=== PATIENT | female | born 1995 | race Caucasian/White ===

== ENCOUNTER 2017-05-03 12:35 | Outpatient (CLI) | payer BC ==
[~2017-05-03] VITALS: Ht 165.1 cm; Wt 93.2 kg
[~2017-05-03 12:35] MED LIST: ALBU18HF INH; PREN1TAB60 PO
[2017-05-03 13:03] VITALS: BP 122/78
[2017-05-03] MEDS ORDERED: NITR100C56 PO (14:16)
[2017-05-03 14:38] LABS: DAU SCREEN DISCLAIMER
== END 2017-05-03 14:35 | disposition home or self-care (01) ==
LOC: LDOP 12:35
PROVIDERS: ATTEND Student in an Organized Health Care Education/Training Program
DX: O26.893 Other specified pregnancy related conditions, third trimester (principal); O99.513 Diseases of the respiratory system complicating pregnancy, third trimester; O99.343 Other mental disorders complicating pregnancy, third trimester; R10.9 Unspecified abdominal pain; J45.909 Unspecified asthma, uncomplicated; F32.9 Major depressive disorder, single episode, unspecified; Z3A.38 38 weeks gestation of pregnancy
CPT/HCPCS: 59025; 80307; 81001; 87086; 99211; G0463

== ENCOUNTER 2017-05-09 15:39 | Outpatient (CLI) | payer BC ==
[~2017-05-09] VITALS: Ht 165.1 cm; Wt 92.7 kg
[~2017-05-09 15:39] MED LIST changes: +NITR100C56 PO
[2017-05-09 16:05] VITALS: BP 103/70
== END 2017-05-09 17:38 | disposition home or self-care (01) ==
LOC: LDOP 15:39
PROVIDERS: ATTEND Student in an Organized Health Care Education/Training Program
DX: O26.893 Other specified pregnancy related conditions, third trimester (principal); O99.513 Diseases of the respiratory system complicating pregnancy, third trimester; O99.343 Other mental disorders complicating pregnancy, third trimester; J45.909 Unspecified asthma, uncomplicated; R10.9 Unspecified abdominal pain; F32.9 Major depressive disorder, single episode, unspecified; Z3A.39 39 weeks gestation of pregnancy
CPT/HCPCS: 59025; 99211; G0463

== ENCOUNTER 2017-05-10 03:45 | Outpatient (CLI) | payer BC ==
[2017-05-10] MEDS ORDERED: ZOLPIDEM 10MG TABLET ONE (05:15)
[2017-05-10] MEDS ORDERED: ZOLPIDEM 10MG TABLET PO PRN (05:30)
== END 2017-05-10 05:45 | disposition home or self-care (01) ==
LOC: LDOP 03:45
PROVIDERS: ATTEND Student in an Organized Health Care Education/Training Program
DX: O26.893 Other specified pregnancy related conditions, third trimester (principal); O99.513 Diseases of the respiratory system complicating pregnancy, third trimester; O99.343 Other mental disorders complicating pregnancy, third trimester; J45.909 Unspecified asthma, uncomplicated; R10.9 Unspecified abdominal pain; F32.9 Major depressive disorder, single episode, unspecified; Z3A.37 37 weeks gestation of pregnancy
CPT/HCPCS: 59025; 99211; G0463

== ENCOUNTER 2017-05-11 12:04 | Inpatient (IN) | payer BC ==
[~2017-05-11] VITALS: Ht 165.1 cm; Wt 92.7 kg
[2017-05-11 12:07] VITALS: BP 101/67
[2017-05-11] MEDS ORDERED: OXYTOCIN 30U/ 0.9% NaCL 500ML 500 ML IV ONE (14:20)
[2017-05-11] MEDS ORDERED: OXYTOCIN 30U/ 0.9% NaCL 500ML 500 ML IV PRN (14:20)
[2017-05-11] MEDS ORDERED: FENTANYL PF 100 MCG/2ML IVPush PRN (14:30)
[2017-05-11] MEDS ORDERED: TERBUTALINE 1 MG/ML, 1ML SQ PRN (14:30)
[2017-05-11] MEDS ORDERED: ONDANSETRON 2MG/ML, 2ML IVPush PRN (14:30)
[2017-05-11] MEDS ORDERED: FENTANYL PF 100 MCG/2ML IV PRN (14:30)
[2017-05-11] MEDS: LACTATED RINGERS 1,000 ML IV SCH ×3 (14:52→18:23)
[2017-05-11 15:14] LABS: HEMATOCRIT 43.1 % (34.6-47.8); HEMOGLOBIN 14.4 g/dL (11.7-16.4); WHITE BLOOD COUNT 12.8 x10^3/uL (3.4-10)
[2017-05-11] MEDS ORDERED: NEWBORN KIT ONE (16:02)
[2017-05-11] MEDS ORDERED: OXYTOCIN 30U/ 0.9% NaCL 500ML 500 ML ONE ×2 (16:02→16:46)
[2017-05-11] MEDS ORDERED: MISOPROSTOL 200 MCG TABLET ONE (16:02)
[2017-05-11] MEDS ORDERED: LIDOCAINE 1%, 20ML ONE (16:02)
[2017-05-11] MEDS ORDERED: FENTANYL/BUPIV./NS/PF 250 ML EPIDCONT ONE ×2 (16:45→16:47)
[2017-05-11] MEDS ORDERED: FENTANYL PF 100 MCG/2ML ONE (16:45)
[2017-05-11] MEDS ORDERED: BUPIVACAINE 0.25% ONE ×2 (16:46→16:47)
[2017-05-11] MEDS ORDERED: LIDOCAINE/PF 1.5%-EPI 1:200K, 30ML ONE (16:47)
[2017-05-11] MEDS ORDERED: D5%-LACTATED RINGERS 1,000 ML IV SCH (19:06)
[2017-05-11] MEDS ORDERED: ONDANSETRON 2MG/ML, 2ML ONE (19:50)
[2017-05-11] MEDS ORDERED: FENTANYL/BUPIV./NS/PF 250 ML EPIDCONT SCH (20:19)
[2017-05-11] MEDS ORDERED: LACTATED RINGERS 1,000 ML IV SCH (20:19)
[2017-05-11] MEDS ORDERED: LACTATED RINGERS 1,000 ML IVBOLUS PRN (20:30)
[2017-05-11] MEDS ORDERED: MISOPROSTOL 200 MCG TABLET PR PRN (22:00)
[2017-05-12] VITALS: BP 106/61
[2017-05-12] MEDS: OXYTOCIN 30U/ 0.9% NaCL 500ML 500 ML IV SCH ×3 (00:02→20:02)
[2017-05-12] MEDS: IBUPROFEN 600 MG TABLET PO PRN ×4 (00:16→22:12)
[2017-05-12] MEDS ORDERED: HYDROcodone/APAP 5/325 TABLET PO PRN (00:30)
[2017-05-12] MEDS ORDERED: BISACODYL 10 MG SUPP PR PRN (00:30)
[2017-05-12] MEDS ORDERED: MAGNESIUM HYDROXIDE 8%, 30ML UDC PO PRN (00:30)
[2017-05-12] MEDS ORDERED: GLYCERIN ADULT SUPP PR PRN (00:30)
[2017-05-12] MEDS ORDERED: ACETAMINOPHEN 325 MG TABLET PO PRN (00:30)
[2017-05-12] MEDS ORDERED: ONDANSETRON 2MG/ML, 2ML IV PRN (00:30)
[2017-05-12] MEDS: HYDROcodone/APAP 5/325 TABLET PO PRN ×4 (02:25→22:12)
[2017-05-12 05:58] LABS: HEMATOCRIT 36.5 % (34.6-47.8); HEMOGLOBIN 12.4 g/dL (11.7-16.4); WHITE BLOOD COUNT 12.2 x10^3/uL (3.4-10)
[2017-05-12 07:30] VITALS: BP 90/50
[2017-05-12] MEDS: DOCUSATE 100 MG CAPSULE PO PRN ×2 (08:08→22:12)
[2017-05-12] MEDS: PRENATAL VIT/IRON/FA 1 EACH TABLET PO SCH (08:09)
[2017-05-12 12:00] VITALS: BP 94/60
[2017-05-12 19:50] VITALS: BP 103/66
[2017-05-13] MEDS: HYDROcodone/APAP 5/325 TABLET PO PRN ×2 (03:27→07:38)
[2017-05-13] MEDS: OXYTOCIN 30U/ 0.9% NaCL 500ML 500 ML IV SCH (06:02)
[2017-05-13] MEDS: PRENATAL VIT/IRON/FA 1 EACH TABLET PO SCH (07:38)
[2017-05-13] MEDS: DOCUSATE 100 MG CAPSULE PO PRN (07:38)
[2017-05-13] MEDS: IBUPROFEN 600 MG TABLET PO PRN (07:38)
[2017-05-13] MEDS ORDERED: IBUP-1222 PO (09:51)
[2017-05-13] MEDS ORDERED: DOCU-131 PO (09:52)
[2017-05-13] MEDS ORDERED: HYDR-3240 PO (09:52)
== END 2017-05-13 11:07 | disposition home or self-care (01) | DRG 775 ==
LOC: LDOP 12:04 → LDIP 14:32 → 2NW 23:44
PROVIDERS: ADMIT Student in an Organized Health Care Education/Training Program; ATTEND Student in an Organized Health Care Education/Training Program
PROC: 10E0XZZ Delivery of Products of Conception, External Approach (ICD-10-PCS; principal; 2017-05-11)
PROC: 3E0S3CZ (ICD-10-PCS; 2017-05-11)
PROC: 00HU33Z Insertion of Infusion Device into Spinal Canal, Percutaneous Approach (ICD-10-PCS; 2017-05-11)
DX: O77.0 Labor and delivery complicated by meconium in amniotic fluid (principal); J45.909 Unspecified asthma, uncomplicated; O99.52 Diseases of the respiratory system complicating childbirth; Z37.0 Single live birth; Z3A.39 39 weeks gestation of pregnancy; Z81.8 Family history of other mental and behavioral disorders; Z83.3 Family history of diabetes mellitus; Z87.891 Personal history of nicotine dependence
CPT/HCPCS: 36415; 85025; 86850; 86900; J2405; J3490; J2590; J3010; J7120; J7121

== ENCOUNTER 2017-09-25 09:39 | Emergency (ER) | payer BC ==
[~2017-09-25] VITALS: Ht 165.1 cm; Wt 88.9 kg
[~2017-09-25 09:39] MED LIST changes: +DOCU-131 PO; +HYDR-3240 PO; +IBUP-1222 PO
[2017-09-25 09:40] VITALS: BP 135/90
[2017-09-25 10:40] LABS: BASOPHILS # (AUTO) 0.08 x10^3/uL (0-0.1); BASOPHILS % (AUTO) 2 % (0-1); EOSINOPHILS # (AUTO) 0.55 x10^3/uL (0-0.4); EOSINOPHILS % (AUTO) 13 % (1-7); LYMPHOCYTES # (AUTO) 1.23 x10^3/uL (1-3.4); LYMPHOCYTES % (AUTO) 29 % (22-44); MD NO; MEAN CORPUSCULAR HEMOGLOBIN 27.6 pg (27.0-34.8); MEAN CORPUSCULAR HGB CONC 32.7 g/dL (32.4-35.8); MEAN CORPUSCULAR VOLUME 84.5 fL (80-100); MEAN PLATELET VOLUME 8.2 fL (7.4-10.4); MONOCYTES # (AUTO) 0.49 x10^3/uL (0.2-0.8); MONOCYTES % (AUTO) 11 % (2-9); NEUTROPHILS # (AUTO) 1.96 x10^3/uL (1.8-6.8); NEUTROPHILS % (AUTO) 46 % (42-75); PLATELET COUNT 252 x10^3/uL (130-400); RED BLOOD COUNT 4.97 x10^6/uL (3.82-5.3); RED CELL DISTRIBUTION WIDTH 16.6 % (9.6-15.2)
[2017-09-25] MEDS ORDERED: DEXT5TAB17 PO (10:46)
[2017-09-25] MEDS ORDERED: MONT10TA6 PO (10:46)
[2017-09-25] MEDS ORDERED: SERT25TA3 PO (10:46)
[2017-09-25] MEDS ORDERED: KETOROLAC 30 MG/1 ML IM ONE (11:00)
[2017-09-25] MEDS ORDERED: OXYcodone/APAP 5/325MG TABLET PO ONE (11:00)
[2017-09-25 11:09] LABS: MICROSCOPIC AUTO
[2017-09-25 11:11] LABS: CULTURE INDICATED? YES
[2017-09-25] MEDS ORDERED: OXYcodone/APAP 5/325MG TABLET ONE (11:37)
[2017-09-25] MEDS ORDERED: KETOROLAC 30 MG/1 ML ONE (11:38)
== END 2017-09-25 11:57 | disposition home or self-care (01) ==
LOC: ED 11:50
DX: N93.8 Other specified abnormal uterine and vaginal bleeding (principal)
CPT/HCPCS: 36415; 76830; 81001; 84702; 85025; 87086; 96372; 99285; J1885

== ENCOUNTER 2017-11-07 13:15 | Observation (INO) | payer BC ==
[~2017-11-07] VITALS: Ht 165.1 cm; Wt 82.0 kg
[~2017-11-07 13:15] MED LIST changes: +DEXT5TAB17 PO; +MONT10TA6 PO; +SERT25TA3 PO
[2017-11-07 14:10] LABS: BASOPHILS # (AUTO) 0.06 x10^3/uL (0-0.1); BASOPHILS % (AUTO) 2 % (0-1); EOSINOPHILS # (AUTO) 0.08 x10^3/uL (0-0.4); EOSINOPHILS % (AUTO) 2 % (1-7); LYMPHOCYTES # (AUTO) 1.48 x10^3/uL (1-3.4); LYMPHOCYTES % (AUTO) 37 % (22-44); MD NO; MEAN CORPUSCULAR HEMOGLOBIN 28.1 pg (27.0-34.8); MEAN CORPUSCULAR HGB CONC 33.3 g/dL (32.4-35.8); MEAN CORPUSCULAR VOLUME 84.6 fL (80-100); MEAN PLATELET VOLUME 7.5 fL (7.4-10.4); MONOCYTES # (AUTO) 0.28 x10^3/uL (0.2-0.8); MONOCYTES % (AUTO) 7 % (2-9); NEUTROPHILS % (AUTO) 53 % (42-75); PLATELET COUNT 221 x10^3/uL (130-400); RED BLOOD COUNT 5.15 x10^6/uL (3.82-5.3); RED CELL DISTRIBUTION WIDTH 17.1 % (9.6-15.2)
[2017-11-07 14:37] LABS: ALBUMIN 4.2 g/dL (3.4-5.0); ANION GAP 7 mmol/L (5-15); CHLORIDE 113 mmol/L (98-107)
[2017-11-07 14:42] LABS: CREATININE 0.73 mg/dL (0.55-1.02)
[2017-11-07 14:43] LABS: ACETAMINOPHEN < 2 mcg/mL (10-30); SALICYLATE LEVEL < 1.7 mg/dL (2.8-20.0)
[2017-11-07 16:39] LABS: AMPHETAMINE SCREEN, URINE Negative (Negative); BARBITURATE SCREEN, URINE Negative (Negative); BENZODIAZEPINE SCREEN, URINE Negative (Negative); CANNABINOID SCREEN, URINE Negative (Negative); COCAINE SCREEN, URINE Negative (Negative); METHADONE SCREEN, URINE Negative (Negative); OPIATE SCREEN, URINE Negative (Negative)
[2017-11-08] MEDS ORDERED: ONDANSETRON ODT 4 MG PO PRN (00:30)
[2017-11-08] MEDS ORDERED: BISACODYL 10 MG SUPP PR PRN (00:30)
[2017-11-08] MEDS ORDERED: POLYETHYLENE GLYCOL 17 GM PACKET PO PRN (00:30)
[2017-11-08] MEDS ORDERED: ACETAMINOPHEN 325 MG TABLET PO PRN (00:30)
[2017-11-08] MEDS ORDERED: ALBUTEROL SULFATE 2.5 MG/3 ML NPPB PRN ×2 (01:00→04:00)
[2017-11-08] MEDS ORDERED: ALBUTEROL SULFATE 2.5 MG/3 ML ONE (03:39)
[2017-11-08] MEDS: ALBUTEROL SULFATE 2.5 MG/3 ML NPPB SCH ×5 (07:00→18:19)
[2017-11-08] MEDS ORDERED: SENNA/DOCUSATE TABLET ONE (08:35)
[2017-11-08] MEDS ORDERED: DEXTROAMPHETAMINE PO SCH (09:00)
[2017-11-08] MEDS ORDERED: AMPHETAMINE PO SCH (09:00)
[2017-11-08] MEDS ORDERED: SENNA/DOCUSATE TABLET PO SCH (09:00)
[2017-11-08 11:20] VITALS: BP 127/83
[2017-11-08 19:48] VITALS: BP 137/87
== END 2017-11-08 21:00 ==
LOC: ED 14:58 → EDIP 22:42 → 2N 11-08 11:08
PROVIDERS: ADMIT Hospitalist; ATTEND Hospitalist
DX: R45.851 Suicidal ideations (principal); F90.9 Attention-deficit hyperactivity disorder, unspecified type; F32.9 Major depressive disorder, single episode, unspecified; E87.1 Hypo-osmolality and hyponatremia; J45.909 Unspecified asthma, uncomplicated; F10.229 Alcohol dependence with intoxication, unspecified; F17.210 Nicotine dependence, cigarettes, uncomplicated; F12.90 Cannabis use, unspecified, uncomplicated
CPT/HCPCS: 36415; 80048; 80307; 80329; 82040; 84703; 85025; 94640; 99285; G0378; J7613; G0480

== ENCOUNTER 2019-02-02 05:58 | Emergency (ER) | payer BC ==
--- NOTE | 2019-02-02 06:01 | NUR ---
INSURANCE SALES ASSOCIATE: NOT IN LOBBY
--- NOTE | 2019-02-02 06:07 | NUR ---
TRIGAE RN: NOT IN LOBBY
--- NOTE | 2019-02-02 06:19 | NUR ---
SCIENTIFIC AIDE: NOT IN LOBBY
--- NOTE | 2019-02-02 06:36 | NUR ---
TA RN: NOT IN LOBBY
== END 2019-02-02 06:38 | disposition left against medical advice (07) ==
LOC: ED 06:32
DX: R56.9 Unspecified convulsions (principal); Z53.21 Procedure and treatment not carried out due to patient leaving prior to being seen by health care provider

== ENCOUNTER 2019-02-19 09:25 | Emergency (ER) | payer BC ==
[~2019-02-19] VITALS: Ht 165.1 cm; Wt 75.0 kg
--- NOTE | 2019-02-19 09:43 | NUR ---
pt presented to ed with "seizure like activity". pt states she has had these seizures for about a month. pt states she has had a headache for a month. pt a&ox4. pt placed in room and placed on bp and cont. pulse oximeter. assessment completed. call [facility] in reach. awaiting .
--- NOTE | 2019-02-19 09:48 | NUR ---
pt states she is 14 weeks with care.
[2019-02-19 10:21] LABS: BASOPHILS # (AUTO) 0.01 x10^3/uL (0-0.1); BASOPHILS % (AUTO) 0 % (0-1); EOSINOPHILS # (AUTO) 0.43 x10^3/uL (0-0.4); EOSINOPHILS % (AUTO) 7 % (1-7); LYMPHOCYTES # (AUTO) 1.55 x10^3/uL (1-3.4); LYMPHOCYTES % (AUTO) 24 % (22-44); MD NO; MEAN CORPUSCULAR HEMOGLOBIN 29.5 pg (27.0-34.8); MEAN CORPUSCULAR VOLUME 86.8 fL (80-100); MEAN PLATELET VOLUME 9.9 fL (7.4-10.4); MONOCYTES # (AUTO) 0.36 x10^3/uL (0.2-0.8); MONOCYTES % (AUTO) 6 % (2-9); NEUTROPHILS % (AUTO) 64 % (42-75); PLATELET COUNT 198 x10^3/uL (130-400); RED BLOOD COUNT 4.61 x10^6/uL (3.82-5.3)
--- NOTE | 2019-02-19 10:22 | NUR ---
lab into draw pt. urine obtained and sent to lab.
[2019-02-19 10:27] LABS: ALANINE AMINOTRANSFERASE 20 U/L (12-78); ALBUMIN 3.3 g/dL (3.4-5.0); ANION GAP 7 mmol/L (5-15); CALCIUM 8.7 mg/dL (8.5-10.1); CHLORIDE 109 mmol/L (98-107); CREATININE 0.61 mg/dL (0.55-1.02)
[2019-02-19 10:30] LABS: ALKALINE PHOSPHATASE 42 U/L (45-117); BILIRUBIN,TOTAL 0.5 mg/dL (0.2-1.0); TOTAL PROTEIN 6.4 g/dL (6.4-8.2)
[2019-02-19 10:38] LABS: MICROSCOPIC AUTO
[2019-02-19 10:54] LABS: CULTURE INDICATED? YES
--- NOTE | 2019-02-19 11:00 | NUR ---
bedside report from cristiano rn, pt resting in [facility], call light within reach, awaiting lab and rad results
--- NOTE | 2019-02-19 11:03 | NUR ---
report given to efe villafuerte
--- NOTE | 2019-02-19 11:38 | NUR ---
CT CHANGED TO MRI, AWAITING MRI.
--- NOTE | 2019-02-19 12:18 | NUR ---
pt to mri
--- NOTE | 2019-02-19 13:01 | NUR ---
pt returned from mri
[2019-02-19 13:04] VITALS: BP 109/68
== END 2019-02-19 14:28 | disposition left against medical advice (07) ==
LOC: ED 12:24
DX: N30.00 Acute cystitis without hematuria (principal); R55 Syncope and collapse; R51 Headache; J45.909 Unspecified asthma, uncomplicated; Z87.891 Personal history of nicotine dependence
CPT/HCPCS: 36415; 70551; 80053; 81001; 84702; 85025; 87086; 93005; 99284

== ENCOUNTER 2019-07-08 14:30 | Observation (INO) | payer SELFPAY ==
[~2019-07-08] VITALS: Ht 165.1 cm; Wt 85.9 kg
[2019-07-08 14:45] VITALS: BP 105/61
== END 2019-07-08 17:28 | disposition home or self-care (01) ==
LOC: LDOP 14:30 → LDIP 15:25
PROVIDERS: ADMIT Obstetrics & Gynecology; ATTEND Obstetrics & Gynecology
DX: O9A.213 Injury, poisoning and certain other consequences of external causes complicating pregnancy, third trimester (principal); O99.513 Diseases of the respiratory system complicating pregnancy, third trimester; O26.893 Other specified pregnancy related conditions, third trimester; G43.909 Migraine, unspecified, not intractable, without status migrainosus; J45.909 Unspecified asthma, uncomplicated; O99.343 Other mental disorders complicating pregnancy, third trimester; F98.8 Other specified behavioral and emotional disorders with onset usually occurring in childhood and adolescence; V43.52XA Car driver injured in collision with other type car in traffic accident, initial encounter; Y93.89 Activity, other specified; Y92.488 Other paved roadways as the place of occurrence of the external cause; Z3A.33 33 weeks gestation of pregnancy
CPT/HCPCS: 59025; 99201; G0378; G0463

== ENCOUNTER 2019-07-18 14:04 | Emergency (ER) | payer SELFPAY ==
[~2019-07-18] VITALS: Ht 165.1 cm; Wt 84.0 kg
--- NOTE | 2019-07-18 14:12 | NUR ---
MD AT BEDSIDE TO ASSESS PT
--- NOTE | 2019-07-18 14:13 | NUR ---
IV STARTED BOLUS HUNG. PT HYPOTENSIVE TACHY HR.
--- NOTE | 2019-07-18 14:13 | NUR ---
THIS IS A 24Y F THAT COMES IN W/ C/O WORSENING SOB SINCE THURSDAY. HX OF ASTHMA NEBULIZER NO HELP. PT SPEAKING IN 2 WORD SENTENCES. HR 130'S BP 95/43 UPON ARRIVAL TO ROOM. PT APPEARS PALE AND DYSPNIC. PT IS 35WKS (NORMAL TO THIS POINT)
[2019-07-18] MEDS ORDERED: ALBUTEROL/IPRATROPIUM 2.5MG/0.5MG, 3 ML ONE (14:23)
[2019-07-18] MEDS ORDERED: ALBUTEROL/IPRATROPIUM 2.5MG/0.5MG, 3 ML NPPB ONE (14:30)
--- NOTE | 2019-07-18 14:38 | NUR ---
PT MEDICATED PER MAR. MOTHER AT BEDSIDE. CALL LIGHT WITHIN REACH
[2019-07-18 14:48] LABS: BASOPHILS # (AUTO) 0.01 x10^3/uL (0-0.1); BASOPHILS % (AUTO) 0 % (0-1); EOSINOPHILS # (AUTO) 0.04 x10^3/uL (0-0.4); EOSINOPHILS % (AUTO) 1 % (1-7); LYMPHOCYTES # (AUTO) 0.69 x10^3/uL (1-3.4); LYMPHOCYTES % (AUTO) 14 % (22-44); MD NO; MEAN CORPUSCULAR HEMOGLOBIN 24.7 pg (27.0-34.8); MEAN CORPUSCULAR HGB CONC 31.7 g/dL (32.4-35.8); MEAN PLATELET VOLUME 8.6 fL (7.4-10.4); MONOCYTES # (AUTO) 0.33 x10^3/uL (0.2-0.8); MONOCYTES % (AUTO) 7 % (2-9); NEUTROPHILS # (AUTO) 3.91 x10^3/uL (1.8-6.8); NEUTROPHILS % (AUTO) 79 % (42-75); PLATELET COUNT 191 x10^3/uL (130-400); RED CELL DISTRIBUTION WIDTH 14.4 % (9.6-15.2)
[2019-07-18 14:53] LABS: ALBUMIN 2.8 g/dL (3.4-5.0); ANION GAP 11 mmol/L (5-15); CALCIUM 8.8 mg/dL (8.5-10.1); CHLORIDE 108 mmol/L (98-107)
[2019-07-18 14:59] LABS: ALANINE AMINOTRANSFERASE 59 U/L (12-78); ALKALINE PHOSPHATASE 142 U/L (45-117); BILIRUBIN,TOTAL 0.6 mg/dL (0.2-1.0); CREATININE 0.58 mg/dL (0.55-1.02); TOTAL PROTEIN 6.7 g/dL (6.4-8.2)
--- NOTE | 2019-07-18 15:03 | NUR ---
BREATHING TX COMPLETE. PT STS NO IMPROVMENT IN SOB, PT STILL ONLY ABLE TO SPEAK 2-3 WORD SENTENCES. PT BP 95/54 AFTER 800ML NS.
--- NOTE | 2019-07-18 16:01 | NUR ---
CT CALLED TO FOLLOW UP ON WHY SCAN NOT DONE YET. THEY WILL BE HERE TO GET PT SOON
--- NOTE | 2019-07-18 16:26 | NUR ---
PT TO CT
[2019-07-18] MEDS ORDERED: OMNIPAQUE 350 MG/ML, 100ML BOTTLE ONE (16:42)
[2019-07-18 16:43] VITALS: BP 99/48
[2019-07-18] MEDS ORDERED: PNV11TAB5 PO (16:45)
--- NOTE | 2019-07-18 16:47 | NUR ---
PT STS STILL "CAN'T REALLY BREATHE AND DON'T FEEL WELL." O2 SAT 95% HR 130'S BP 99/48 RR 18. PT ABLE TO ANSWER QUESTIONS WITH UP TO 4 WORDS BEFORE NEEDING TO PAUSE. PT SITTING ON GURNEY WATCHING TV AT THIS TIME. CALL LIGHT WITHIN REACH
== END 2019-07-18 17:35 | disposition home or self-care (01) ==
LOC: ED 17:25
DX: O99.513 Diseases of the respiratory system complicating pregnancy, third trimester (principal); J45.41 Moderate persistent asthma with (acute) exacerbation; Z3A.35 35 weeks gestation of pregnancy
CPT/HCPCS: 36415; 71045; 71275; 80053; 83605; 83880; 85025; 85379; 87040; 93005; 94640; 99284; J7512; J7620; Q9967

== ENCOUNTER 2019-08-13 14:20 | Inpatient (IN) | payer OTHER ==
[~2019-08-13] VITALS: Ht 165.1 cm; Wt 84.1 kg
[~2019-08-13 14:20] MED LIST changes: +PNV11TAB5 PO
[2019-08-13 14:49] VITALS: BP 122/66
[2019-08-13 15:15] VITALS: BP 122/66
[2019-08-13] MEDS ORDERED: OXYTOCIN 30U/ 0.9% NaCL 500ML 500 ML IV ONE (15:59)
[2019-08-13] MEDS: D5%-LACTATED RINGERS 1,000 ML IV SCH ×2 (15:59→23:59)
[2019-08-13] MEDS ORDERED: ONDANSETRON 2MG/ML, 2ML IVPush PRN (16:00)
[2019-08-13] MEDS ORDERED: TERBUTALINE 1 MG/ML, 1ML SQ PRN (16:00)
[2019-08-13] MEDS ORDERED: FENTANYL PF 100 MCG/2ML IV PRN (16:00)
[2019-08-13] MEDS ORDERED: TERBUTALINE 1 MG/ML, 1ML IVPush PRN (16:00)
[2019-08-13] MEDS ORDERED: FENTANYL PF 100 MCG/2ML IVPush PRN (16:00)
[2019-08-13 16:21] LABS: MICROSCOPIC INDICATED
[2019-08-13 16:26] LABS: BASOPHILS % (AUTO) 0 % (0-1); EOSINOPHILS % (AUTO) 4 % (1-7); LYMPHOCYTES % (AUTO) 14 % (22-44); MEAN CORPUSCULAR HEMOGLOBIN 24.2 pg (27.0-34.8); MEAN CORPUSCULAR HGB CONC 31.6 g/dL (32.4-35.8); MEAN CORPUSCULAR VOLUME 76.5 fL (80-100); MEAN PLATELET VOLUME 8.7 fL (7.4-10.4); MONOCYTES % (AUTO) 6 % (2-9); NEUTROPHILS % (AUTO) 77 % (42-75); PLATELET COUNT 251 x10^3/uL (130-400); RED CELL DISTRIBUTION WIDTH 15.8 % (9.6-15.2)
[2019-08-13 16:27] LABS: BASOPHILS # (AUTO) 0.01 x10^3/uL (0-0.1); EOSINOPHILS # (AUTO) 0.38 x10^3/uL (0-0.4); LYMPHOCYTES # (AUTO) 1.49 x10^3/uL (1-3.4); MD NO; MONOCYTES # (AUTO) 0.64 x10^3/uL (0.2-0.8); NEUTROPHILS # (AUTO) 8.24 x10^3/uL (1.8-6.8)
[2019-08-13] MEDS ORDERED: ACETAMINOPHEN 325 MG TABLET ONE (16:29)
[2019-08-13] MEDS ORDERED: ACETAMINOPHEN 325 MG TABLET PO PRN (16:30)
[2019-08-13] MEDS ORDERED: CLINDAMYCIN PMX 900MG/50ML 50 ML ONE (16:43)
[2019-08-13] MEDS: CLINDAMYCIN PMX 900MG/50ML 50 ML IVPB SCH (16:45)
[2019-08-13] MEDS: LACTATED RINGERS 1,000 ML IV SCH ×3 (16:46→19:19)
[2019-08-13] MEDS ORDERED: OXYTOCIN 30U/ 0.9% NaCL 500ML 500 ML ONE (17:18)
[2019-08-13] MEDS ORDERED: MISOPROSTOL 200 MCG TABLET ONE (17:18)
[2019-08-13] MEDS ORDERED: LIDOCAINE 1%, 20ML ONE (17:18)
[2019-08-13] MEDS ORDERED: NEWBORN KIT ONE (17:18)
[2019-08-13] MEDS ORDERED: FENTANYL/BUPIV./NS/PF 250 ML EPIDCONT ONE (17:38)
[2019-08-13] MEDS ORDERED: BUPIVACAINE 0.25% ONE (17:51)
[2019-08-13 17:53] LABS: AMPHETAMINE SCREEN, URINE Negative (Negative); BARBITURATE SCREEN, URINE Negative (Negative); BENZODIAZEPINE SCREEN, URINE Negative (Negative); CANNABINOID SCREEN, URINE Negative (Negative); COCAINE SCREEN, URINE Negative (Negative); METHADONE SCREEN, URINE Negative (Negative); OPIATE SCREEN, URINE Negative (Negative)
[2019-08-13] MEDS ORDERED: OXYTOCIN 30U/ 0.9% NaCL 500ML 500 ML IV PRN (19:07)
[2019-08-14] MEDS: CLINDAMYCIN PMX 900MG/50ML 50 ML IVPB SCH
[2019-08-14] MEDS: OXYTOCIN 30U/ 0.9% NaCL 500ML 500 ML IV SCH ×6 (00:20→10:20)
[2019-08-14] MEDS ORDERED: OXYcodone/APAP 5/325MG TABLET PO PRN ×2 (00:30)
[2019-08-14] MEDS ORDERED: METOCLOPRAMIDE 5 MG/ML, 2ML IV PRN (00:30)
[2019-08-14] MEDS ORDERED: ACETAMINOPHEN 325 MG TABLET PO PRN (00:30)
[2019-08-14] MEDS ORDERED: METHYLERGONOVINE 0.2 MG/ML IM PRN (00:30)
[2019-08-14] MEDS ORDERED: ONDANSETRON 2MG/ML, 2ML IV PRN (00:30)
[2019-08-14] MEDS ORDERED: OXYTOCIN 10 UNITS/ML, 1ML IM PRN (00:30)
[2019-08-14] MEDS ORDERED: SIMETHICONE 80 MG CHEW TAB PO PRN (00:30)
[2019-08-14] MEDS ORDERED: MAGNESIUM HYDROXIDE 8%, 30ML UDC PO PRN (00:30)
[2019-08-14] MEDS ORDERED: OXYTOCIN 30U/ 0.9% NaCL 500ML 500 ML ONE (01:20)
[2019-08-14 03:40] VITALS: BP 111/69
[2019-08-14 07:15] VITALS: BP 98/56
[2019-08-14] MEDS: DOCUSATE 100 MG CAPSULE PO PRN ×2 (07:20→20:28)
[2019-08-14] MEDS: PRENATAL VIT/IRON/FA 1 EACH TABLET PO SCH (07:20)
[2019-08-14] MEDS: IBUPROFEN 800 MG TABLET PO PRN ×2 (07:20→17:11)
[2019-08-14 08:30] LABS: MEAN CORPUSCULAR HEMOGLOBIN 24.1 pg (27.0-34.8); MEAN CORPUSCULAR HGB CONC 32.3 g/dL (32.4-35.8); MEAN CORPUSCULAR VOLUME 74.6 fL (80-100); MEAN PLATELET VOLUME 8.6 fL (7.4-10.4); PLATELET COUNT 216 x10^3/uL (130-400); RED BLOOD COUNT 4.04 x10^6/uL (3.82-5.3); RED CELL DISTRIBUTION WIDTH 15.5 % (9.6-15.2)
[2019-08-14 09:44] LABS: BASOPHILS # (AUTO) 0.02 x10^3/uL (0-0.1); BASOPHILS % (AUTO) 0 % (0-1); EOSINOPHILS # (AUTO) 0.31 x10^3/uL (0-0.4); EOSINOPHILS % (AUTO) 3 % (1-7); LYMPHOCYTES # (AUTO) 1.54 x10^3/uL (1-3.4); LYMPHOCYTES % (AUTO) 14 % (22-44); MD SCAN; MONOCYTES # (AUTO) 0.66 x10^3/uL (0.2-0.8); MONOCYTES % (AUTO) 6 % (2-9); NEUTROPHILS # (AUTO) 8.71 x10^3/uL (1.8-6.8); NEUTROPHILS % (AUTO) 78 % (42-75)
[2019-08-14 12:00] VITALS: BP 108/70
[2019-08-14 16:30] VITALS: BP 106/72
[2019-08-14 20:10] VITALS: BP 101/68
[2019-08-14 23:54] VITALS: BP 91/57
[2019-08-15 07:15] VITALS: BP 96/60
[2019-08-15] MEDS: PRENATAL VIT/IRON/FA 1 EACH TABLET PO SCH (09:00)
[2019-08-15] MEDS ORDERED: DOCU-131 PO (09:29)
[2019-08-15] MEDS ORDERED: OXYC-302 PO (09:30)
[2019-08-15] MEDS ORDERED: IBUP-1223 PO (09:30)
[2019-08-15] MEDS ORDERED: FERR325T23 PO (09:31)
== END 2019-08-15 10:15 | disposition home or self-care (01) | DRG 807 ==
LOC: LDOP 14:20 → LDIP 16:04 → 2NW 08-14 03:26
PROVIDERS: ADMIT Obstetrics & Gynecology; ATTEND Obstetrics & Gynecology
PROC: 10E0XZZ Delivery of Products of Conception, External Approach (ICD-10-PCS; principal; 2019-08-13)
PROC: 10907ZC Drainage of Amniotic Fluid, Therapeutic from Products of Conception, Via Natural or Artificial Opening (ICD-10-PCS; 2019-08-13)
PROC: 10H07YZ Insertion of Other Device into Products of Conception, Via Natural or Artificial Opening (ICD-10-PCS; 2019-08-13)
PROC: 3E0R3BZ Introduction of Anesthetic Agent into Spinal Canal, Percutaneous Approach (ICD-10-PCS; 2019-08-13)
PROC: 00HU33Z Insertion of Infusion Device into Spinal Canal, Percutaneous Approach (ICD-10-PCS; 2019-08-13)
DX: O99.354 Diseases of the nervous system complicating childbirth (principal); Z37.0 Single live birth; Z3A.38 38 weeks gestation of pregnancy; O99.52 Diseases of the respiratory system complicating childbirth; J45.909 Unspecified asthma, uncomplicated; G43.909 Migraine, unspecified, not intractable, without status migrainosus; O71.89 Other specified obstetric trauma
CPT/HCPCS: 36415; 80307; 81001; 85025; 86850; 86900; 89060; G0378; J2590; J3010; J7120; Q0114

== ENCOUNTER 2019-09-01 02:14 | Emergency (ER) | payer OTHER ==
[~2019-09-01] VITALS: Ht 165.1 cm; Wt 77.6 kg
[~2019-09-01 02:14] MED LIST changes: +FERR325T23 PO; +IBUP-1223 PO; +OXYC-302 PO
[2019-09-01 03:37] LABS: BASOPHILS # (AUTO) 0.06 x10^3/uL (0-0.1); BASOPHILS % (AUTO) 1 % (0-1); EOSINOPHILS # (AUTO) 1.35 x10^3/uL (0-0.4); EOSINOPHILS % (AUTO) 17 % (1-7); LYMPHOCYTES # (AUTO) 2.57 x10^3/uL (1-3.4); LYMPHOCYTES % (AUTO) 32 % (22-44); MD NO; MONOCYTES # (AUTO) 0.45 x10^3/uL (0.2-0.8); MONOCYTES % (AUTO) 6 % (2-9); NEUTROPHILS # (AUTO) 3.69 x10^3/uL (1.8-6.8); NEUTROPHILS % (AUTO) 45 % (42-75); PLATELET COUNT 246 x10^3/uL (130-400); RED BLOOD COUNT 5.21 x10^6/uL (3.82-5.3); RED CELL DISTRIBUTION WIDTH 18.2 % (9.6-15.2)
[2019-09-01 03:47] LABS: ALANINE AMINOTRANSFERASE 27 U/L (12-78); ALBUMIN 3.3 g/dL (3.4-5.0); ANION GAP 5 mmol/L (5-15); CALCIUM 8.6 mg/dL (8.5-10.1); CHLORIDE 110 mmol/L (98-107); CREATININE 0.72 mg/dL (0.55-1.02)
[2019-09-01 03:49] LABS: ALKALINE PHOSPHATASE 71 U/L (45-117); BILIRUBIN,TOTAL 0.7 mg/dL (0.2-1.0); TOTAL PROTEIN 6.8 g/dL (6.4-8.2)
--- NOTE | 2019-09-01 04:11 | NUR ---
PT C/O LOWER ABD PAIN STATED PAIN HAS NOW MOVED TO RUQ X 5 DAYS. PT AMBULATED TO BR, INSTRUCTED ON CLEAN CATCH TECHNIQUE.
--- NOTE | 2019-09-01 04:17 | NUR ---
URINE COLLECTED AND SENT TO LAB. REVIEWED POC W/ PT AND FRIEND INCLUDING PENDING TESTS AND CHART REVIEW BY ERP. DENIED QUESTIONS/CONCERNS. PROVIDED W/ WARM BLANKETS.
[2019-09-01] MEDS ORDERED: IBUPROFEN 800 MG TABLET PO ONE (05:00)
[2019-09-01 05:05] LABS: CULTURE INDICATED? NO; HCG UR SG 1.043 (1.003-1.030); MICROSCOPIC AUTO
--- NOTE | 2019-09-01 05:15 | NUR ---
PT DECLINED IBUPROPHEN ORDERED BY ERP, STATES HAS BEEN TAKING IT AT HOME WITHOUT RELIEF. PT AWARE PENDING FINAL CHART REVIEW BY ERP PRIOR TO DC.
[2019-09-01 05:20] VITALS: BP 120/75
== END 2019-09-01 05:33 | disposition home or self-care (01) ==
LOC: ED 05:31
DX: R10.84 Generalized abdominal pain (principal); J45.909 Unspecified asthma, uncomplicated
CPT/HCPCS: 36415; 76700; 80053; 81001; 81025; 83690; 85025; 99284